=== PATIENT | female | born 1980 | race Caucasian/White ===

== ENCOUNTER 2021-02-25 16:23 | Emergency (ER) | payer OTHER, SELFPAY ==
[2021-02-25 16:33] VITALS: BP 138/76; PULSE 96; RESP 18; TEMP 37.4; O2SAT 99
--- NOTE | 2021-02-25 17:09 | ED.GENADULT ---
HPI - General Adult General Chief complaint: Upper Respiratory Infection Stated complaint: COVID Test Time Seen by Provider: 02/25/21 16:37 Source: patient and RN notes reviewed Mode of arrival: ambulatory Limitations: no limitations History of Present Illness HPI narrative: Patient presents today complaining of a frontal headache, chills, vomiting x1, body aches since this morning. She has not tried drinking since vomiting this morning because she is afraid to vomit again. Denies sore throat, congestion, rhinorrhea, abdominal pain, diarrhea. She does report some intermittent abdominal cramping. She did have COVID-19 in July but did not have symptoms at the time. States she just found out that her fourth coworker currently has COVID-19. Smokes 0.5 packs/day. History of tonsillectomy. MD complaint: Vomiting, headache Related Data Home Medications Medication Instructions Recorded Confirmed baclofen 10 mg PO Q8-10H PRN 02/25/21 02/25/21 bupropion HCl 150 mg PO BID 02/25/21 02/25/21 gabapentin 300 mg PO Q8-10H 02/25/21 02/25/21 meloxicam 7.5 mg PO PRN PRN 02/25/21 02/25/21 Allergies Allergy/AdvReac Type Severity Reaction Status Date / Time acetaminophen Allergy Mild Unknown Verified 02/25/21 16:39 Penicillins Allergy Mild Unknown Verified 02/25/21 16:39 HYDROCODONE BIT Allergy Mild Unknown Uncoded 02/25/21 16:39 OXYCODONE HCL Allergy Mild Unknown Uncoded 02/25/21 16:39 Review of Systems Review of Systems: Narrative: CONSTITUTIONAL: Denies fever, or sweats.+ Chills, body aches EYES: Denies visual changes, redness, or discharge. ENT: Denies rhinorrhea, congestion, sore throat, or otalgia. CARDIOVASCULAR: Denies chest pain, palpitations, or edema. RESPIRATORY: Denies cough or dyspnea. GASTROINTESTINAL: Denies abdominal pain, or diarrhea. + Nausea, vomiting, abdominal cramping GENITOURINARY: Denies dysuria or hematuria. SKIN: Denies rash, itching, or wounds. MUSCULOSKELETAL: Denies back pain, joint pain, or myalgia. NEUROLOGIC: Denies numbness, tingling, or weakness.+ Headache PSYCH: Denies depression or anxiety. PMFSH Past Medical History Medical History (Updated 02/25/21 @ 17:50 by Reny Luz, [facility], ) Asthma Surgical History Surgical History (Updated 02/25/21 @ 17:12 by Reny Luz, [facility], ) Hx of tonsillectomy Social History Social History (Updated 02/25/21 @ 17:13 by Reny Luz, [facility], ) Smoking packs per day: 0.25 Smoking cigarettes per day: 5.0 Smoking status: Current every day smoker Tobacco type: cigarettes Gender identity (if verbalized by the patient): Female Comments At time of signature, I have reviewed and agree with nursing past medical, surgical, social and family history unless otherwise noted. Please see nursing chart for further information. There is no relevant family history pertinent to the presenting complaint Exam Narrative: Exam Narrative: GENERAL: Ill-appearing, well-nourished, and in no acute distress. HEAD: Normocephalic, atraumatic. EYES: EOMI. No redness or drainage. Conjunctivae normal. ENT: Mucous membranes pink and moist. Nares clear. No rhinorrhea. Left TM normal. Right TM slightly injected. Throat normal. Uvula midline. NECK: Normal AROM. Supple. No lymphadenopathy. CHEST: No respiratory distress. Clear to auscultation. HEART: Regular rate and rhythm. No murmur appreciated. Normal peripheral pulses. ABDOMEN: Soft, nontender, nondistended, normal active bowel sounds. EXTREMITIES: Normal range of motion. No edema. SKIN: Warm, dry, no rash. Capillary refill normal. Normal skin turgor. NEURO: No focal deficits. Alert and oriented x3. Gait steady. PSYCH: Normal affect. No signs of depression or anxiety. Course Vital Signs Vital signs: Vital Signs Temperature 99.4 F 02/25/21 16:33 Pulse Rate 96 02/25/21 16:33 Respiratory Rate 18 02/25/21 16:33 Blood Pressure 138/76 02/25/21 16:33 Pulse Oximetry 99
[2021-02-25] MEDS: ONDANSETRON HCL ODT 4 MG TABLET 8 MG SUBLINGUAL (17:10)
[2021-02-27 18:42] LABS: SARS-CoV-2 RNA PCR Negative
== END 2021-02-25 17:56 | disposition home or self-care (01) ==
PROVIDERS: Emergency Provider Nurse Practitioner; PCP Family Medicine
DX: B34.9 Viral infection, unspecified (principal); Z20.822 Contact with and (suspected) exposure to COVID-19; J45.909 Unspecified asthma, uncomplicated
CPT/HCPCS: 87081; 87426; 87804; 87880; 99213; A9270; C9803; G0463; U0003; U0005

== ENCOUNTER 2021-04-08 10:11 | Emergency (ER) | payer OTHER, SELFPAY ==
--- NOTE | 2021-04-08 10:21 | ED.EXTPRO ---
HPI - Extremity Problem General Chief complaint: Extremity Problem,Nontraumatic Stated complaint: Bilateral hand pain History of Present Illness HPI Narrative: This is a 40 year old female that present with bilateral hand rash and eruption that are painful when she closes. Patient states that they started 4 days ago and they continue to get a little bigger. Patient denies any weeping or painfulness to touch but theyare annoying her. Patient has informed me that she was just informed that her KIAH test came back positive and she is awaiting a appointment with a catalyst supervisor. Patient denies having them anywhere elswe just on her hands. Related Data Home Medications Medication Instructions Recorded Confirmed baclofen 10 mg PO Q8-10H PRN 02/25/21 04/08/21 bupropion HCl 150 mg PO BID 02/25/21 04/08/21 meloxicam 7.5 mg PO PRN PRN 02/25/21 04/08/21 ergocalciferol (vitamin D2) 1,250 mcg PO WEEKLY 04/08/21 04/08/21 mecobalamin (vitamin B12) 10,000 mcg IM WEEKLY 04/08/21 04/08/21 metformin 500 mg PO DAILY 04/08/21 04/08/21 Allergies Allergy/AdvReac Type Severity Reaction Status Date / Time acetaminophen [From Percocet] Allergy Intermediate Swelling Verified 04/08/21 10:36 codeine Allergy Intermediate Swelling Verified 04/08/21 10:36 oxycodone [From Percocet] Allergy Intermediate Swelling Verified 04/08/21 10:36 Penicillins Allergy Mild Rash Verified 04/08/21 10:35 HYDROCODONE BIT Allergy Intermediate Swelling Uncoded 04/08/21 10:35 Review of Systems Review of Systems: Narrative: CONSTITUTIONAL: Denies fever, chills, or sweats. EYES: Denies visual changes, redness, or discharge. ENT: Denies rhinorrhea, congestion, sore throat, or otalgia. CARDIOVASCULAR:Denies chest pain, palpitations, or edema. RESPIRATORY: Denies cough or dyspnea. GASTROINTESTINAL: Denies abdominal pain, nausea, vomiting, or diarrhea. GENITOURINARY: Denies dysuria or hematuria. SKIN reports rash or itching. MUSCULOSKELETAL:Denies back pain, joint pain, or myalgia. NEUROLOGIC: Denies headache, numbness, or weakness. PSYCHIATRIC:Denies anxiety or depression PMFSH Past Medical History Medical History (Updated 04/08/21 @ 10:39 by Donenll Cash NP) Asthma Surgical History Surgical History (Updated 02/25/21 @ 17:12 by Reny Luz, [facility], ) Hx of tonsillectomy Social History Social History (Updated 02/25/21 @ 17:13 by Reny Luz, [facility], ) Smoking packs per day: 0.25 Smoking cigarettes per day: 5.0 Smoking status: Current every day smoker Tobacco type: cigarettes Gender identity (if verbalized by the patient): Female Comments At time as signature, I have reviewed and agree with nursing past medical, social, surgical and family history. Please see nursing chart for further information. There is no relevant family history pertinent to the presenting complaint. Exam Narrative: Exam Narrative: GENERAL:Well-appearing, well-nourished, and in no acute distress. HEAD:Normocephalic, atraumatic. EYES: PERRLA and EOMI. ENT: Nares clear, no rhinorrhea or epistaxis. Mucous membranes moist. NECK: Supple. CHEST: Clear to auscultation. No respiratory distress. HEART: Regular rate and rhythm. No murmur heard. Normal peripheral pulses. ABDOMEN: Soft, nontender, nondistended, normal active bowel sounds. EXTREMITIES: Normal range of motion. No edema. SKIN: Warm, dry, small pinpoint white eruption that are itchy and hard. NEURO: No focal deficits. Alert and oriented x3. Discharge Plan Discharge Clinical Impression: Rash and nonspecific skin eruption Patient Disposition: Home, Self-Care Condition: Stable Instructions: Antibiotic Form, Acute Rash (ED), Autoimmune Disease (ED) Additional Instructions: Use skin creams/lotion, such as those containing calamine or pramoxine to reduce itchiness Avoid scratching when possible to prevent worsening of the condition and disruption of the skin that could lead to bacterial infection T
[2021-04-08 10:29] VITALS: BP 128/85; PULSE 87; RESP 16; TEMP 36.5; O2SAT 100
[2021-04-08 10:34] VITALS: BP 128/85; PULSE 87; RESP 16; TEMP 36.5; O2SAT 100
== END 2021-04-08 10:48 | disposition home or self-care (01) ==
PROVIDERS: Emergency Provider Nurse Practitioner Family; PCP Family Medicine
DX: R21 Rash and other nonspecific skin eruption (principal); F17.210 Nicotine dependence, cigarettes, uncomplicated; J45.909 Unspecified asthma, uncomplicated
CPT/HCPCS: 99213; G0463

== ENCOUNTER → 2021-05-26 00:46 | Outpatient (CLI) | payer OTHER, SELFPAY ==
[2021-05-26 22:45] LABS: SARS-CoV-2 RNA PCR Negative
== END ==
PROVIDERS: PCP Family Medicine; Visit Provider Obstetrics & Gynecology
DX: Z01.812 Encounter for preprocedural laboratory examination (principal); Z20.822 Contact with and (suspected) exposure to COVID-19
CPT/HCPCS: C9803; U0003; U0005

== ENCOUNTER 2021-05-30 01:53 | Day surgery (SDC) | payer OTHER, SELFPAY ==
[2021-05-28 13:07] VITALS: BMI 34.0
--- NOTE | 2021-05-29 09:09 | P.PNAN_ITS ---
Anes - Initial Pre Proc Eval Procedure: Operation Date: 05/30/21 07:30 Proposed Procedures p Diagnostic Laparoscopy, Hysteroscopy with Endometrial Ablation Ilene, with Laparoscopic Bilateral Salpingectomy - Miladis Shin MD Date/Time: 05/29/21 09:09 Surgeon: Miladis Shin MD Pre Op Diagnosis: menorrhagia, desires sterilization Patient Data Age: 40 Gender: F Height: 1.55 m Weight: 81.8 kg Allergies Allergy/AdvReac Type Severity Reaction Status Date / Time Penicillins Allergy Severe Hives Verified 05/30/21 06:16 codeine Allergy Intermediate Swelling Verified 05/30/21 06:16 oxycodone [From Percocet] AdvReac Mild Vomiting Verified 05/30/21 06:16 HYDROCODONE BIT AdvReac Intermediate Vomiting Uncoded 05/30/21 06:16 Home Medications Medication Instructions Recorded Confirmed Type bupropion HCl 150 mg PO BID 02/25/21 05/30/21 History ergocalciferol (vitamin D2) 1,250 mcg PO WEEKLY 04/08/21 05/30/21 History albuterol sulfate 2 inh INHALATION TID PRN 05/28/21 05/28/21 History Patient hx anesthesia problems: none Family hx anesthesia problems: none [facility] Past Medical History Medical History (Updated 05/29/21 @ 09:10 by Tong Rodas DO) Asthma Pre-diabetes Surgical History Surgical History (Updated 05/29/21 @ 09:10 by Tong Rodas DO) History of History of cholecystectomy Hx of tonsillectomy Social History Social History (Updated 02/25/21 @ 17:13 by Reny Luz, [facility], ) Smoking packs per day: 0.25 Smoking cigarettes per day: 5.0 Years smoked: 26 Smoking pack-years: 6.50 Smoking status: Current every day smoker Tobacco type: cigarettes Gender identity (if verbalized by the patient): Female Spiritual care concerns: No Anes - Eval Final PreProcedure Day of Procedure 05/29/21 09:09 Patient weight: obese Heart: regular rate and rhythm Lungs: clear to auscultation and normal air movement Airway: Mallampati scale class II Neurological: alert and oriented Last oral intake: >/= 8 hours ASA classification: III Emergent: no Anesthetic plan: proceed Anesthesia type and monitoring: general ETT and standard monitoring Informed Consent: The patient's anesthetic plan and its attendant risks and b enefits were discussed with the patient/family/POA. Questions were solicited and answers provided to the satisfaction of the patient/family/POA.
[2021-05-30] VITALS (12 sets, daily range): BP systolic 84–115; BP diastolic 45–77; PULSE 71–98; RESP 12–20; TEMP 36.1–36.7; O2SAT 94–100
[2021-05-30] MEDS: ACETAMINOPHEN 500 MG TABLET 1000 MG PO (06:35)
[2021-05-30] MEDS: LACTATED RINGERS 1,000 ML 30 ML IV CONT ×3 (06:40→11:42)
[2021-05-30] MEDS: KETOROLAC 15 MG/ML VIAL (*BKC) IV PUSH (06:41)
--- NOTE | 2021-05-30 07:13 | WPDHPUPDATE1 ---
History and Physical Update Update Date/Time: 05/30/21 07:13 History and Physical has been reviewed, including an updated exam of the patient. There are NO changes in the patient's condition. Risks, benefits, and alternatives have been discussed and questions answered. Patient agrees to proceed with procedure.
--- NOTE | 2021-05-30 10:17 | W.PM.PROC2 ---
Procedure Note - Detailed Date of Procedure 05/30/21 Pre-op Diagnosis menorrhagia, desires sterilization, pelvic pain Post-op Diagnosis same (With endometriosis, pelvic adhesions) Procedure Performed Diagnostic laparoscopy, bilateral salpingectomy, adhesiolysis-1 hour, resection and fulguration of endometriosis with radical resection. Surgeon Miladis Shin MD Anesthesia general Indications Pelvic pain, unwanted fertility, menorrhagia Findings Pelvic adhesions involving the rectum, left ovary and left fallopian tube and left lateral pelvic sidewall. Endometriosis throughout the posterior cul-de-sac. Normal-appearing tubes and ovaries. Normal-appearing uterus that was mildly enlarged - 9cm. Normal vulva, vagina, and cervix. Normal-appearing into atrial cavity. Description of Procedure The patient was taken to the operating room. She was prepped and draped in the dorsal lithotomy position after induction general anesthesia. A 5 mm incision was made with a scalpel on the abdominal skin in the left upper quadrant of the abdomen. A 5 mm trocar was inserted into the intra-abdominal cavity under direct visualization the scope. In the same fashion a 5 mm left lower quadrant trocar was inserted and a 5 mm infraumbilical trocar was inserted. 1 hour adhesiolysis was performed using sharp and blunt dissection along the lateral left pelvic sidewall. The left ovary and fallopian tube were from the left lateral pelvic sidewall. The ureter was identified ureteral lysis was performed down to the level of the uterine artery on the left. The rectum was from the left lateral pelvic sidewall and the ovary. This was all done with careful sharp and blunt dissection along with cautery. The ovaries were suspended bilaterally using a transabdominally placed suture. This was performed with a Julio Cesar-Aida needle. After transillumination the abdomen the needle was placed across the abdominal wall in the bilateral lower quadrants holding the 0 Vicryl suture. The skin was placed through the ovary the sutures gracilis side the ovary and drawn back through the abdomen and held in place with a hemostat bilaterally. Radical dissection of the posterior cul-de-sac peritoneum was then performed. This required adhesiolysis as well. Ureters were exposed on both sides. Ureterolysis was performed bilaterally. Peritoneum was carefully dissected off the pelvic sidewalls from the pelvic brim down the level of the uterine arteries and laterally from the suspensory in the ovary medially to the rectum. When this was completed and was found to be hemostatic. Interceed was placed over both sides of the pelvis. Prior to placement of the Interceed The pelvis was irrigated. Then, The pneumoperitoneum was reduced. The trocars were removed. Skin was closed with subcuticular 4 Monocryl. The patient's incisions were covered with Dermabond. Speculum was placed in the vagina. Cervix grasped with a tenaculum. The cervix dilated to about 8 mm. Hysteroscope was inserted in the normal intrauterine cavity was observed. Curettage was then performed with a medium curette. All surfaces were curettaged with a sharp curette. The cervix was then measured using the hysteroscope. The uterus was measured using a sound. The measurements were entered into the Ilene handpiece. The array was then placed the intrauterine cavity. The array was expanded. The balloon cuff was inflated. The safety checks completed in the energy cycle was initiated. Without was completed the device was withdrawn after was collapsed and the balloon was deflated. The hysteroscope was then inserted and a well desiccated endometrium was observed. The procedure was then terminated. Speculum and tenaculum removed. Patient tolerated the procedure well. Was taken cover stable condition. Sponge lap needle counts were correct x2. Estimated Blood Loss 100 Drains No Packing No Pathology yes Complicati
[2021-05-30] MEDS: ONDANSETRON INJ 4 MG/2 ML VIAL IV PUSH (11:14)
[2021-05-30] MEDS: SCOPOLAMINE 1.5 MG PATCH TRANSDERM (11:47)
[2021-05-30] MEDS: diphenhydrAMINE HCl INJ 50 MG/ML VIAL 12.5 MG IV PUSH (11:47)
== END 2021-05-30 13:45 | disposition home or self-care (01) ==
PROVIDERS: PCP Family Medicine; Visit Provider Obstetrics & Gynecology
PROC: 0UDB8ZZ Extraction of Endometrium, Via Natural or Artificial Opening Endoscopic (ICD-10-PCS; CPT 58558; principal; 2021-05-30 07:30)
DX: N92.0 Excessive and frequent menstruation with regular cycle (principal); Z30.2 Encounter for sterilization; R10.2 Pelvic and perineal pain; N73.6 Female pelvic peritoneal adhesions (postinfective); N80.3 Endometriosis of pelvic peritoneum; N83.8 Other noninflammatory disorders of ovary, fallopian tube and broad ligament; J45.909 Unspecified asthma, uncomplicated; R73.03 Prediabetes; Z79.51 Long term (current) use of inhaled steroids; F17.210 Nicotine dependence, cigarettes, uncomplicated; E66.01 Morbid (severe) obesity due to excess calories; Z68.41 Body mass index [BMI] 40.0-44.9, adult
CPT/HCPCS: 58662; 58661; 88302; 88305; A9270; J1100; J1170; J1200; J1885; J2250; J2370; J2405; J2704; J2710; J3010; J7030; J7120

== ENCOUNTER 2021-08-04 17:07 | Emergency (ER) | payer OTHER, SELFPAY ==
[2021-08-04 17:17] VITALS: BP 147/95; PULSE 82; RESP 17; O2SAT 100
--- NOTE | 2021-08-04 18:09 | ED.SKABFB ---
HPI - Skin/Abscess/Foreign Bdy General Chief complaint: Skin/Abscess/Foreign Body Stated complaint: wound Time Seen by Provider: 08/04/21 17:54 Source: patient and RN notes reviewed Mode of arrival: ambulatory Limitations: no limitations History of Present Illness HPI narrative: This is a 40 year old female who presents for evaluation of right hand wound. Patient developed wound on that seemed like small pimple. It gradually become swollen and red . Yesterday she was seen at an urgent care and she had wound lanced. She was prescribed bactrim but she has not started the antibiotics. She read that bactrim could potentiallly cause flare up of lupus, and she was recently diagnosed. She reports swelling to right hand around wound. Related Data Home Medications Medication Instructions Recorded Confirmed bupropion HCl 150 mg PO BID 02/25/21 05/30/21 ergocalciferol (vitamin D2) 1,250 mcg PO WEEKLY 04/08/21 05/30/21 albuterol sulfate 2 inh INHALATION TID PRN 05/28/21 05/28/21 Allergies Allergy/AdvReac Type Severity Reaction Status Date / Time Penicillins Allergy Severe Hives Verified 08/04/21 17:20 codeine Allergy Intermediate Swelling Verified 08/04/21 17:20 hydrocodone AdvReac Intermediate Vomiting Verified 08/04/21 18:23 oxycodone [From Percocet] AdvReac Mild Vomiting Verified 08/04/21 17:20 Review of Systems Review of Systems: All systems reviewed & are unremarkable except as noted in HPI and below PMFSH Past Medical History Medical History (Updated 08/05/21 @ 00:00 by Chris Davenport) Asthma Pre-diabetes Surgical History Surgical History (Updated 05/29/21 @ 09:10 by Tong Rodas, DO) History of History of cholecystectomy Hx of tonsillectomy Social History Social History (Updated 02/25/21 @ 17:13 by Reny Luz, [facility], ) Smoking packs per day: 0.25 Smoking cigarettes per day: 5.0 Years smoked: 26 Smoking pack-years: 6.50 Smoking status: Current every day smoker Tobacco type: cigarettes Gender identity (if verbalized by the patient): Female Spiritual care concerns: No Exam Const: General: alert Orientation/consciousness: patient oriented x3 Eyes: EOM: EOMs intact bilaterally Resp: Effort & Inspection: normal respiratory effort Neuro: General: patient oriented x3 and moves all extremities Extrem: General: full ROM Other: right hand with small wound red, no drainage, no surrgound induration, TTP around wound, no signigicant swelling Psych: Mental Status: mental status grossly normal Affect: normal affect Course Reevaluation(s) Reevaluation #1: Patient given dose of antibiotics in ER . Will discharge with doxycycline. Date: 08/04/21 Time: 18:17 Vital Signs Vital signs: Vital Signs Pulse Rate 82 08/04/21 17:17 Respiratory Rate 17 08/04/21 17:17 Blood Pressure 147/95 H 08/04/21 17:17 Pulse Oximetry 100 08/04/21 17:17 Pulse Rate 82 08/04/21 17:17 Respiratory Rate 17 08/04/21 17:17 Blood Pressure 147/95 H 08/04/21 17:17 Pulse Oximetry 100 08/04/21 17:17 Discharge Plan Discharge Clinical Impression: Open wound, hand Patient Disposition: Home, Self-Care Condition: Stable Instructions: Antibiotic Form, Abscess Incision and Drainage (DC) Additional Instructions: Keep your wound clean and dry. Take ibuprofen for pain and inflammation. This will help with swelling. Take antibiotics as well. Follow up with your primary care physician as needed. Prescriptions: New doxycycline monohydrate 100 mg tablet 100 mg PO BID Qty: 14 RF: 0 ibuprofen 800 mg tablet 800 mg PO Q6H PRN (Reason: pain) Qty: 14 RF: 0 No Action ergocalciferol (vitamin D2) 1,250 mcg (50,000 unit) capsule 1,250 mcg PO WEEKLY RF: 0 bupropion HCl 150 mg tablet sustained-release 12 hr 150 mg PO BID RF: 0 albuterol sulfate 90 mcg/actuation HFA aerosol inhaler 2 inh INHALATION TID PRN (Reason: Dys
[2021-08-04] MEDS: IBUPROFEN 400 MG TABLET 800 MG PO (18:16)
[2021-08-04] MEDS: DOXYCYCLINE HYCLATE 100 MG TABLET PO (18:16)
== END 2021-08-04 18:45 | disposition home or self-care (01) ==
PROVIDERS: Emergency Provider General Practice; PCP Family Medicine
DX: L98.8 Other specified disorders of the skin and subcutaneous tissue (principal); J45.909 Unspecified asthma, uncomplicated; R73.03 Prediabetes; F17.210 Nicotine dependence, cigarettes, uncomplicated
CPT/HCPCS: 99283; A9270

== ENCOUNTER 2021-10-23 11:25 | Emergency (ER) | payer OTHER, SELFPAY ==
--- NOTE | ~2021-10-23 | US_ITS ---
EXAMINATION:US venous doppler LE LT INDICATION:Evaluate for deep venous thrombosis. TECHNIQUE: Multiple grayscale, color flow and Doppler images of the left lower extremity deep venous systems were obtained and reviewed. COMPARISON:No prior studies for comparison. FINDINGS: The common femoral, superficial femoral and popliteal veins demonstrate normal respiratory variation, augmentation and compressibility. Color flow is also seen within the posterior tibial, pe roneal, greater saphenous and profunda veins. IMPRESSION: 1: No lower extremity deep venous thrombosis. Reviewed, dictated and finalized at location B. [employer]
[2021-10-23 11:35] VITALS: BP 119/70; PULSE 88; RESP 18; TEMP 36.5; O2SAT 100
[2021-10-23 14:13] VITALS: BP 127/63; PULSE 76; RESP 18; O2SAT 99
--- NOTE | 2021-10-23 17:06 | ED.GENADULT ---
HPI - General Adult General Chief complaint: Extremity Problem,Nontraumatic Stated complaint: left calf pain Time Seen by Provider: 10/23/21 11:51 Source: patient Mode of arrival: ambulatory Limitations: no limitations History of Present Illness HPI narrative: Patient is a 40-year-old female with chief complaint of pain to the posterior aspect of her left calf over the past few days. Patient reports that she had an ACL repair on September. Patient reports that she has been working with physical therapy and when she discussed with him the pain in her calf today they instructed her to come to the emergency department to rule out a DVT. I have been working on the leg to stretch and massage the muscles. Patient reports taking 325 mg of aspirin. Patient reports having ACL repair and SLU. She denies chest pain or shortness of breath. Related Data Home Medications Medication Instructions Recorded Confirmed bupropion HCl 150 mg PO BID 02/25/21 05/30/21 ergocalciferol (vitamin D2) 1,250 mcg PO WEEKLY 04/08/21 05/30/21 albuterol sulfate 2 inh INHALATION TID PRN 05/28/21 05/28/21 Allergies Allergy/AdvReac Type Severity Reaction Status Date / Time Penicillins Allergy Severe Hives Verified 08/04/21 17:20 codeine Allergy Intermediate Swelling Verified 08/04/21 17:20 hydrocodone AdvReac Intermediate Vomiting Verified 08/04/21 18:23 oxycodone [From Percocet] AdvReac Mild Vomiting Verified 08/04/21 17:20 Review of Systems Review of Systems: CONSTITUTIONAL: Denies fever, chills, or sweats. EYES: Denies visual changes, redness, or discharge. ENT: Denies rhinorrhea, congestion, sore throat, or otalgia. CARDIOVASCULAR: Denies chest pain, palpitations, or edema. RESPIRATORY: Denies cough or dyspnea. GASTROINTESTINAL: Denies abdominal pain, nausea, vomiting, or diarrhea. GENITOURINARY: Denies dysuria or hematuria. SKIN: Denies rash or itching. MUSCULOSKELETAL: Reports left calf pain denies back pain, joint pain, or myalgia. NEUROLOGIC: Denies headache, numbness, dizziness, or weakness. PSYCHIATRIC: Denies anxiety or depression. [facility] Past Medical History Medical History (Updated 10/23/21 @ 13:58 by Eugenio Sanchez PA-C) Asthma Pre-diabetes Surgical History Surgical History (Updated 05/29/21 @ 09:10 by Tong Rodas, DO) History of History of cholecystectomy Hx of tonsillectomy Social History Social History (Updated 02/25/21 @ 17:13 by Reny Luz, [facility], ) Smoking packs per day: 0.25 Smoking cigarettes per day: 5.0 Years smoked: 26 Smoking pack-years: 6.50 Smoking status: Current every day smoker Tobacco type: cigarettes Gender identity (if verbalized by the patient): Female Spiritual care concerns: No Exam Narrative: GENERAL: Well-appearing, well-nourished, and in no acute distress. HEAD: Normocephalic, atraumatic. EYES: PERRLA and EOMI. CHEST: Clear to auscultation. No respiratory distress. No wheezes rales or rhonchi HEART: Regular rate and rhythm. EXTREMITIES:No erythema noted to posterior calf. Pulse intact TO DP. SKIN: Warm, dry, no rash. NEURO: No focal deficits. Alert and oriented x3. PSYCH: Normal mood and affect. Course Vital Signs Vital signs: Vital Signs Temperature 97.7 F 10/23/21 11:35 Pulse Rate 88 10/23/21 11:35 Respiratory Rate 18 10/23/21 11:35 Blood Pressure 119/70 10/23/21 11:35 Pulse Oximetry 100 10/23/21 11:35 Temperature 97.7 F 10/23/21 11:35 Pulse Rate 76 10/23/21 14:13 Respiratory Rate 18 10/23/21 14:13 Blood Pressure 127/63 10/23/21 14:13 Pulse Oximetry 99 10/23/21 14:13 Medical Decision Making MDM Narrative Medical decision making narrative: Doppler negative for DVT. Patient instructed to follow-up with her carburetor specialist further evaluation and management of her symptoms. No signs of cellulitis or infection noted. No drainage from wound sites. Patient instructed to return to the emerge
== END 2021-10-23 14:15 | disposition home or self-care (01) ==
PROVIDERS: Emergency Provider Emergency Medicine; PCP Family Medicine
DX: G89.18 Other acute postprocedural pain (principal); M79.662 Pain in left lower leg; J45.909 Unspecified asthma, uncomplicated; R73.03 Prediabetes; F17.210 Nicotine dependence, cigarettes, uncomplicated
CPT/HCPCS: 93971; 99284

== ENCOUNTER 2023-01-29 09:07 | Outpatient (CLI) | payer OTHER, SELFPAY ==
--- NOTE | ~2023-01-29 | MM_ITS ---
EXAMINATION: MM screening zamzam BI w romina HISTORY: Screening mammogram TECHNIQUE: Craniocaudal and mediolateral oblique 3-D tomosynthesis images were obtained and synthetic 2-D images were generated. CAD analysis was submitted and interpreted. COMPARISON: None, baseline BREAST PARENCHYMAL COMPOSITION: There are scattered areas of fibroglandular density. FINDINGS: No suspicious mass, calcification, or architectural distortion are identified in either payton ast to suggest malignancy. IMPRESSION: 1. No mammographic evidence of malignancy. 2. Recommend routine screening mammography in one year. BI-RADS Category 1: Negative Reviewed, dictated and finalized at location A.
== END 2023-01-29 09:08 | disposition home or self-care (01) ==
LOC: ANHIMG 09:08
PROVIDERS: PCP Family Medicine; Visit Provider Nurse Practitioner Obstetrics & Gynecology
DX: Z12.31 Encounter for screening mammogram for malignant neoplasm of breast (principal)
CPT/HCPCS: 77063; 77067

== ENCOUNTER 2023-07-24 03:40 | Emergency (ER) | payer OTHER, SELFPAY ==
--- NOTE | ~2023-07-24 | CT_ITS ---
EXAMINATION: CT abdomen pelvis w con DATE: 07/24/2023 05:25 INDICATION: Left flank pain. TECHNIQUE: Computed tomography (CT) of the abdomen and pelvis was performed with 100 mL Omnipaque 350 intravenous contrast. Automated exposure control and iterative reconstruction technique were employe d. The dose-length product was 852.73 mGy-cm. COMPARISON: None. FINDINGS: The visualized portions of the lung bases demonstrate minimal atelectasis on the left. No p leural effusion. The heart size is normal. No pericardial effusion. The liver is normal. There are ch anges of cholecystectomy. The spleen, pancreas, adrenal glands, and kidneys are normal. There is a 4. 7 cm cyst in left ovary. There are no dilated loops of bowel. The appendix is normal. There is physio logic fluid in the pelvis. There are no pathologically enlarged lymph nodes. There is mild thoracic a nd lumbar spondylosis. IMPRESSION: 1. 4.7 cm cyst in left ovary, likely a follicular cyst. Reviewed, dictated and finalized at location E.
[2023-07-24 03:51] VITALS: BP 131/94; PULSE 77; RESP 15; TEMP 36.7; O2SAT 98
[2023-07-24 04:05] LABS: Basophils Absolute Auto 0.1 K/mm3 (0.0-0.1); Basophils Percent Auto 0.7 % (0.2-1.2); Eosinophils Absolute Auto 0.4 K/mm3 (0-0.3); Eosinophils Percent Auto 3.7 % (0-4.4); Hematocrit 42.3 % (37.0-47.0); Hemoglobin 14.4 g/dL (12.0-15.0); Immature Granulocyte Absolute 0.04 K/mm3 (0.00-0.031); Immature Granulocyte Percent A 0.4 % (0-0.5); Lymphocytes Absolute Auto 2.76 K/mm3 (0.9-3.2); Mean Corpuscular Hemoglobin 31.6 pg (26-34); Mean Corpuscular Volume 92.8 fl (80-100); Mean Platelet Volume 11.1 fl (7.4-10.4); Monocytes Absolute Auto 0.8 K/mm3 (0.1-0.6); Monocytes Percent Auto 7.5 % (2.6-8.5); Neutrophils Absolute Auto 6.2 K/mm3 (1.3-6.7); Neutrophils Percent Auto 60.7 % (45.5-73.1); Platelet Count Result 279 k/mm3 (150-375); Red Blood Count 4.56 M/mm3 (4.2-5.4); Red Cell Distribution Width 12.5 % (11.5-14.5); White Blood Count 10.2 K/mm3 (4.5-10.0)
[2023-07-24 04:30] LABS: Alanine Aminotransferase 23 U/L (6-35); Albumin Level 3.8 g/dL (3.5-5.1); Alkaline Phosphatase 62 U/L (38-126); Anion Gap 6 mmol/L (8-16); Aspartate Amino Transferase 26 U/L (14-36); Bilirubin,Total 0.3 mg/dL (0.2-1.3); Blood Urea Nitrogen 13 mg/dL (7-17); Calcium 8.4 mg/dL (8.4-10.2); Carbon Dioxide 23 mmol/L (22-30); Chloride 105 mmol/L (98-107); Estimated CRCL calculation 125 ml/min; Estimated Glomerular Filt Rate > 60; Glucose 117 mg/dL (65-110); Potassium 3.6 mmol/L (3.4-5.0); Sodium 134 mmol/L (137-145)
--- NOTE | 2023-07-24 04:50 | ED.ABDPAIN ---
HPI - Abdominal Pain General Chief Complaint: Abdominal Pain Stated Complaint: lower abd pain Time Seen by Provider: 07/24/23 04:20 Source: patient Limitations: no limitations History of Present Illness HPI narrative: Patient is a 42-year-old female present to the emergency department complaining of left lower back and left groin discomfort that started gradually around approximately 10 AM yesterday morning, describes the pain as sharp, states that it is waxing and waning and has not gone away, patient denies any history of this pain in the past. Patient denies the pain getting rapidly worse prompting her to seek evaluation rather has not gotten better and seems like it is just progressively been worsening throughout the past approximately 30 hours. Patient has not noticed anything making her pain better nor worse. Patient thought that she was constipated so she tried some laxatives without any relief patient notes her last bowel movement was Friday and unremarkable. Patient notes her last menstrual period was in 2020. Patient denies vomiting, diarrhea, recent injuries, recent illness, fever, dysuria, hematuria, urinary frequency, urinary urgency, vaginal bleeding, vaginal discharge, rash, numbness, weakness, cough, chest pain, shortness of breath, history of kidney stones. Related Data Home Medications Medication Instructions Recorded Confirmed bupropion HCl 150 mg tablet,12 hr 150 mg PO BID 02/25/21 07/24/23 sustained-release albuterol sulfate 90 mcg/actuation 2 inh inhalation TID PRN Dyspnea 05/28/21 07/24/23 aerosol inhaler hydroxychloroquine 200 mg tablet 400 mg PO QAM 07/24/23 07/24/23 Allergies Allergy/AdvReac Type Severity Reaction Status Date / Time Penicillins Allergy Severe Hives Verified 07/25/23 10:49 codeine Allergy Intermediate Swelling Verified 07/25/23 10:49 hydrocodone AdvReac Mild Vomiting Verified 07/25/23 10:49 hydromorphone [From Dilaudid] AdvReac Mild Itching Verified 07/25/23 10:49 oxycodone [From Percocet] AdvReac Mild Vomiting Verified 07/25/23 10:49 Review of Systems Review of Systems: A 10 system review of systems was completed on the patient and is negative except for what is stated in the HPI. Nursing and ancillary documentation was reviewed. [facility] Past Medical History Medical History (Updated 10/27/23 @ 11:21 by Tong Rodas DO) KIAH positive Asthma Endometriosis Pre-diabetes Surgical History Surgical History (Updated 05/29/21 @ 09:10 by Tong Rodas DO) History of History of cholecystectomy Hx of tonsillectomy Family History Family History (Updated 07/24/23 @ 19:00 by Krystyna Franz RN) Mother Breast cancer Ovarian cancer Lupus Social History Social History (Updated 02/25/21 @ 17:13 by Reny Luz, [facility], ) Smoking packs per day: 0.25 Smoking cigarettes per day: 5.0 Years smoked: 26 Smoking pack-years: 6.50 Smoking status: Current every day smoker Tobacco type: cigarettes Alcohol intake: never Substance use: never Lack of Transportation: No Lack of Food: Never True Current Housing: I Have Housing Concerned About Future Housing: No Difficulty Paying Gas/Electric Bills: No Difficulty Paying for Meds: No Currently Unemployed: No Education: High School Diploma/GED Difficulty w/ Childcare or Family Care: No Gender identity (if verbalized by the patient): Female Spiritual care concerns: No Comments At time of signature, I have reviewed and agree with nursing past medical, surgical, social and family history unless otherwise noted. Please see the nursing chart for further information. There is no relevant family history pertinent to the presenting complaint. Exam Narrative: CONST: Mild acute distress. Well nourished. HENMT: Head is normocephalic and atraumatic. Moist mucous membranes. No posterior oropharynx erythema. EYES: No conjunctival icterus, injection, or pallor. PE
[2023-07-24 04:58] LABS: Lipase 74 U/L (23-300)
[2023-07-24] MEDS: KETOROLAC 15 MG/ML VIAL (*BKC) IV PUSH (05:04)
[2023-07-24 05:13] LABS: Appearance Urine Clear (Clear); Bilirubin Urine Negative (Negative); Blood Urine Negative (Negative); Color Urine Yellow (Yellow); Glucose Urine UA Negative (Negative); Ketones Urine Negative (Negative); Leukocyte Esterase Ur Negative LEU/UL (Negative); Nitrate Urine Negative (Negative); Protein Urine Negative (Negative); Specific Grav Ur 1.012 (1.001-1.035); Urobilinogen Urine 0.2 mg/dL (<2.0); pH Urine 5.5 (5.0-9.0)
[2023-07-24 05:35] LABS: Add Urine Microscopic? NO
[2023-07-24 06:14] VITALS: BP 122/70; PULSE 62; RESP 15; O2SAT 99
[2023-07-24 06:42] VITALS: BP 121/74; PULSE 72; RESP 15; O2SAT 100
== END 2023-07-24 06:44 | disposition home or self-care (01) ==
PROVIDERS: Emergency Provider Student in an Organized Health Care Education/Training Program; PCP Family Medicine
DX: N83.202 Unspecified ovarian cyst, left side (principal); J45.909 Unspecified asthma, uncomplicated; R73.03 Prediabetes; N80.9 Endometriosis, unspecified; F17.210 Nicotine dependence, cigarettes, uncomplicated; Z90.49 Acquired absence of other specified parts of digestive tract
CPT/HCPCS: 36415; 74177; 80053; 81003; 81025; 83690; 85025; 96374; 99284; J1885; Q9967

== ENCOUNTER 2023-07-24 13:50 | Observation (INO) | payer OTHER, SELFPAY ==
[2023-07-24 13:54] VITALS: BP 128/107; PULSE 72; RESP 16; TEMP 36.5; O2SAT 97
--- NOTE | 2023-07-24 16:50 | ED.ABDPAIN ---
HPI - Abdominal Pain General Chief Complaint: Abdominal Pain Stated Complaint: known ovarian cyst Time Seen by Provider: 07/24/23 16:34 History of Present Illness HPI narrative: 42-year-old female presenting to the emergency department for evaluation of lower abdominal pain. Patient was recently diagnosed with an ovarian cyst and patient had follow-up with [facility]. Patient states that she called her [facility] and she was referred to the emergency department for evaluation. Upon arrival to the emergency department patient does appear to have some abdominal discomfort. Patient denies any other pain or injury. Patient is not on any blood thinners. Related Data Home Medications Medication Instructions Recorded Confirmed bupropion HCl 150 mg tablet,12 hr 150 mg PO BID 02/25/21 07/24/23 sustained-release albuterol sulfate 90 mcg/actuation 2 inh inhalation TID PRN Dyspnea 05/28/21 07/24/23 aerosol inhaler hydroxychloroquine 200 mg tablet 400 mg PO QAM 07/24/23 07/24/23 Allergies Allergy/AdvReac Type Severity Reaction Status Date / Time Penicillins Allergy Severe Hives Verified 08/04/21 17:20 codeine Allergy Intermediate Swelling Verified 07/24/23 20:46 hydrocodone AdvReac Mild Vomiting Verified 07/24/23 20:46 oxycodone [From Percocet] AdvReac Mild Vomiting Verified 07/24/23 20:46 Review of Systems Review of Systems: All systems reviewed & are unremarkable except as noted in HPI and below PMFSH Past Medical History Medical History (Updated 07/24/23 @ 21:16 by Khoi Galvin MD) Asthma Pre-diabetes Surgical History Surgical History (Updated 05/29/21 @ 09:10 by Tong Rodas DO) History of History of cholecystectomy Hx of tonsillectomy Family History Family History (Updated 07/24/23 @ 19:00 by Krystyna Franz RN) Mother Breast cancer Ovarian cancer Lupus Social History Social History (Updated 02/25/21 @ 17:13 by Reny Luz, [facility], ) Smoking packs per day: 0.25 Smoking cigarettes per day: 5.0 Years smoked: 26 Smoking pack-years: 6.50 Smoking status: Current every day smoker Tobacco type: cigarettes Alcohol intake: never Substance use: never Lack of Transportation: No Lack of Food: Never True Current Housing: I Have Housing Concerned About Future Housing: No Difficulty Paying Gas/Electric Bills: No Difficulty Paying for Meds: No Currently Unemployed: No Education: High School Diploma/GED Difficulty w/ Childcare or Family Care: No Gender identity (if verbalized by the patient): Female Spiritual care concerns: No Exam Narrative: APPEARANCE: Distress secondary to abdominal pain HEAD: normocephalic, atraumatic. EYES: PERRLA/EOMI, conjunctivae clear. NOSE: Normal no drainage EARS:TMS clear with good light reflex. THROAT: Pharynx clear, no exudate. NECK: Supple. No adenopathy, no masses. RESPIRATORY: Airway patent, respirations nonlabored. Clear to auscultation bilaterally, no rales, rhonchi, wheezing. CARDIOVASCULAR: Regular rate and rhythm without murmurs rubs or gallops. ABDOMINAL: Lower abdominal tenderness to palpation MUSCULOSKELETAL: Moves all extremities. Strength/ROM intact, No edema, No calf tenderness. NEURO: Alert. Cranial nerves II through XII intact. Grossly intact SKIN: Warm, dry. Normal Color PSYCHIATRIC: Normal affect/mood. Course Course Emergency Course: 42-year-old female present emergency department for evaluation of abdominal pain secondary to recent identified cyst. Patient was provided IV medications for pain control and for nausea control. Patient was also provided IV fluids. I discussed case with Dr. Shin and he states that he will admit the patient to his service and the anticipated plan is surgery in the morning. Patient and family were updated on the discussion with Dr. Shin anticipated surgery for the morning. All questions concerns addressed and patient was well-appearing after pain medicati
[2023-07-24 16:52] VITALS: BP 116/77; PULSE 69; RESP 17; O2SAT 99
[2023-07-24 16:56] LABS: Basophils Absolute Auto 0.1 K/mm3 (0.0-0.1); Basophils Percent Auto 0.7 % (0.2-1.2); Eosinophils Absolute Auto 0.4 K/mm3 (0-0.3); Eosinophils Percent Auto 4.7 % (0-4.4); Hematocrit 43.4 % (37.0-47.0); Hemoglobin 14.6 g/dL (12.0-15.0); Immature Granulocyte Absolute 0.02 K/mm3 (0.00-0.031); Immature Granulocyte Percent A 0.2 % (0-0.5); Lymphocytes Absolute Auto 2.97 K/mm3 (0.9-3.2); Lymphocytes Percent Auto 36.1 % (18.3-44.2); Mean Corpuscular HGB Conc 33.6 g/dl (32-36); Mean Corpuscular Hemoglobin 31.7 pg (26-34); Mean Corpuscular Volume 94.1 fl (80-100); Mean Platelet Volume 10.9 fl (7.4-10.4); Monocytes Absolute Auto 0.6 K/mm3 (0.1-0.6); Monocytes Percent Auto 7.5 % (2.6-8.5); Neutrophils Absolute Auto 4.2 K/mm3 (1.3-6.7); Neutrophils Percent Auto 50.8 % (45.5-73.1); Platelet Count Result 273 k/mm3 (150-375); Red Blood Count 4.61 M/mm3 (4.2-5.4); Red Cell Distribution Width 12.7 % (11.5-14.5); White Blood Count 8.2 K/mm3 (4.5-10.0)
[2023-07-24] MEDS: ONDANSETRON INJ 4 MG/2 ML VIAL IV PUSH ×2 (17:07→19:45)
[2023-07-24] MEDS: SODIUM CHLORIDE 0.9% IV 1,000 ML 999 ML IV CONT (17:07)
[2023-07-24] MEDS: fentaNYL CITRATE INJ (*CRX) 100 MCG/2 ML VIAL 50 MCG IV PUSH ×2 (17:08→18:52)
[2023-07-24 17:09] LABS: Alanine Aminotransferase 30 U/L (6-35); Albumin Level 3.9 g/dL (3.5-5.1); Alkaline Phosphatase 64 U/L (38-126); Anion Gap 3 mmol/L (8-16); Aspartate Amino Transferase 30 U/L (14-36); Bilirubin,Total 0.3 mg/dL (0.2-1.3); Blood Urea Nitrogen 12 mg/dL (7-17); Calcium 8.5 mg/dL (8.4-10.2); Carbon Dioxide 28 mmol/L (22-30); Chloride 106 mmol/L (98-107); Estimated CRCL calculation 106 ml/min; Estimated Glomerular Filt Rate > 60; Glucose 102 mg/dL (65-110); Lipase 69 U/L (23-300); Sodium 137 mmol/L (137-145)
[2023-07-24 17:10] LABS: Prothrombin Time 13.5 Seconds (11.1-14.7)
[2023-07-24 17:11] LABS: Partial Thromboplastin Time 30.7 SECONDS (22.3-36.8)
--- NOTE | 2023-07-24 18:55 | ADMGEN ---
This patient, Mariel Martines, was admitted to 2 Medical Room 259-. Patient/family oriented to hospital policies and general routines including ID bracelet, bed and alarms, visiting hours, pain management, procedures, bathroom and other care routines, personal items, smoking policy, room service/diet, and visiting hours. Information on how to activate the Rapid Response Team has been discussed. Patient/Family are encouraged to report perceived risks to care and to ask questions if they do not understand what they are told or what they should do.
[2023-07-24] MEDS: KETOROLAC 30 MG/ML VIAL (*BKC) IV PUSH (19:44)
[2023-07-24] MEDS: HYDROmorphone HCL INJ (*CRX) 1 MG/ML SYR IV PUSH (20:01)
[2023-07-24 21:15] VITALS: BP 93/54; PULSE 66; RESP 18; TEMP 36.3; O2SAT 99
[2023-07-25] VITALS (13 sets, daily range): BP systolic 90–118; BP diastolic 48–70; PULSE 58–81; RESP 12–19; TEMP 36.4–36.6; O2SAT 92–100
--- NOTE | 2023-07-25 00:24 | PC.NURSE ---
Bedside test reordered. Test was not completed in ED and order did not transfer in computer system to new inpatient V-number.
[2023-07-25] MEDS: DEXTROSE 5%/LACTATED RINGERS 1,000 ML 125 ML IV CONT (02:36)
--- NOTE | 2023-07-25 08:27 | PM.IMHP ---
H&P: HPI History of Present Illness Date/Time: 07/25/23 08:27 Chief Complaint: pelvic pain Narrative: 42-year-old female with severe pelvic pain and large ovarian cyst. Likely a torsion of the ovary and fallopian tube. In Profound pain by appearance, in the office, on the exam table crying. denies any vaginal bleeding. Denies any nausea, vomiting, fever, chills. She denies any chest pain shortness of breath Review of Systems Review of Systems: All systems reviewed & are unremarkable except as noted in HPI and below Constitutional: Constitutional: Denies chills, Denies fatigue, Denies fever(s) and Denies weakness Eyes: Eyes: Denies blurry vision, Denies change in vision, Denies loss of peripheral vision, Denies loss of vision, Denies other visual disturbances and Denies eye pain ENT: Denies vertigo, Denies dizziness, Denies hearing loss, Denies mouth pain, Denies nasal obstruction, Denies neck mass and Denies neck pain Cardiovascular: Cardiovascular: Denies chest pain, Denies diaphoresis, Denies syncope, Denies leg edema and Denies dyspnea Respiratory: Respiratory: Denies chest congestion, Denies cough, Denies hemoptysis, Denies dyspnea and Denies wheezing Gastrointestinal: Gastrointestinal: Denies abdominal pain, Denies constipation, Denies diarrhea, Denies nausea and Denies vomiting Genitourinary: Genitourinary: Denies hematuria, Denies change in libido, Denies nocturia, Denies genital lesions, Denies flank pain and Denies urinary urgency Musculoskeletal: Musculoskeletal: Denies abnormal gait, Denies back pain, Denies myalgias, Denies arthralgias, Denies joint swelling, Denies muscle weakness and Denies neck pain Integumentary/Breasts: Skin/Breast: Denies swelling, Denies breast pain, Denies breast mass, Denies dry skin, Denies nipple discharge, Denies unusual bruising and Denies jaundice Neurologic: Denies Neuro-related abnormal movements, Denies Abnormal speech present, Denies abnormal gait, Denies behavioral changes, Denies confusion, Denies vertigo, Denies dizziness, Denies syncope, Denies loss of vision, Denies memory loss, Denies convulsions and Denies weakness Psychiatric: Psychiatric: Denies abnormal sleep pattern, Denies behavioral changes, Denies change in libido, Denies confusion, Denies depression, Denies anhedonia and Denies memory loss Endocrine: Endocrine: Reports no additional endocrine complaints, Denies change in libido and Denies fatigue Hematologic/Lymphatic: Hematologic/Lymphatic: Reports no additional hematologic/lymphatic complaints Allergic/Immunologic: Allergic/Immunologic: Reports no additional allergic/immunologic complaints and Denies wheezing COUNTS INCLUDE 234 BEDS AT THE [facility] Past Medical History Medical History (Updated 07/25/23 @ 08:30 by Miladis Shin MD) Asthma Pre-diabetes Surgical History Surgical History (Updated 05/29/21 @ 09:10 by Tong Rodas DO) History of History of cholecystectomy Hx of tonsillectomy Family History Family History (Updated 07/24/23 @ 19:00 by Krystyna Franz RN) Mother Breast cancer Ovarian cancer Lupus Social History Social History (Updated 02/25/21 @ 17:13 by Reny Luz, [facility], ) Smoking packs per day: 0.25 Smoking cigarettes per day: 5.0 Years smoked: 26 Smoking pack-years: 6.50 Smoking status: Current every day smoker Tobacco type: cigarettes Alcohol intake: never Substance use: never Lack of Transportation: No Lack of Food: Never True Current Housing: I Have Housing Concerned About Future Housing: No Difficulty Paying Gas/Electric Bills: No Difficulty Paying for Meds: No Currently Unemployed: No Education: High School Diploma/GED Difficulty w/ Childcare or Family Care: No Gender identity (if verbalized by the patient): Female Spiritual care concerns: No Meds Home Medications and Allergies Home Medications Medication Instructions Recorded Confirmed Type bupropion HCl 150 mg tabl
--- NOTE | 2023-07-25 08:31 | WPDHPUPDATE1 ---
History and Physical Update Update Date/Time: 07/25/23 08:31 History and Physical has been reviewed, including an updated exam of the patient. There are NO changes in the patient's condition. Risks, benefits, and alternatives have been discussed and questions answered. Patient agrees to proceed with procedure.
[2023-07-25] MEDS: ONDANSETRON INJ 4 MG/2 ML VIAL IV PUSH ×2 (09:04→18:19)
[2023-07-25] MEDS: HYDROmorphone HCL INJ (*CRX) 1 MG/ML SYR IV PUSH ×2 (09:10→16:46)
--- NOTE | 2023-07-25 10:25 | PC.NURSE ---
To OR per bed, IV at left AC. Report given to Pascual NUNEZ.
--- NOTE | 2023-07-25 11:21 | WPDANESEPPF ---
Anes - Initial Pre Proc Eval Procedure: Operation Date: 07/25/23 12:00 Proposed Procedures p Laparoscopic Left Ovarian Cystectomy - Miladis Shin MD Date/Time: 07/25/23 11:21 Surgeon: Miladis Shin MD Pre Op Diagnosis: Ovarian cyst Patient Data Age: 42 Gender: F Height: 1.57 m Weight: 83.6 kg Last Vital Signs Temp 36.4 C 07/25/23 05:14 Pulse 58 L 07/25/23 05:14 Resp 18 07/25/23 05:14 BP 118/70 07/25/23 09:05 Pulse Ox 98 07/25/23 05:14 O2 Del Method Room Air 07/24/23 20:00 Allergies Allergy/AdvReac Type Severity Reaction Status Date / Time Penicillins Allergy Severe Hives Verified 07/25/23 10:49 codeine Allergy Intermediate Swelling Verified 07/25/23 10:49 hydrocodone AdvReac Mild Vomiting Verified 07/25/23 10:49 hydromorphone [From Dilaudid] AdvReac Mild Itching Verified 07/25/23 10:49 oxycodone [From Percocet] AdvReac Mild Vomiting Verified 07/25/23 10:49 Home Medications Medication Instructions Recorded Confirmed Type bupropion HCl 150 mg tablet,12 hr 150 mg PO BID 02/25/21 07/24/23 History sustained-release albuterol sulfate 90 mcg/actuation 2 inh inhalation TID PRN Dyspnea 05/28/21 07/24/23 History aerosol inhaler hydroxychloroquine 200 mg tablet 400 mg PO QAM 07/24/23 07/24/23 History Laboratory Tests 07/24/23 16:49 WBC 8.2 K/mm3 (4.5-10.0) RBC 4.61 M/mm3 (4.2-5.4) Hgb 14.6 g/dL (12.0-15.0) Hct 43.4 % (37.0-47.0) MCV 94.1 fl (80-100) MCH 31.7 pg (26-34) MCHC 33.6 g/dl (32-36) RDW 12.7 % (11.5-14.5) Plt Count 273 k/mm3 (150-375) MPV 10.9 H fl (7.4-10.4) Immature Gran % (Auto) 0.2 % (0-0.5) Neut % (Auto) 50.8 % (45.5-73.1) Lymph % (Auto) 36.1 % (18.3-44.2) Powell % (Auto) 7.5 % (2.6-8.5) Eos % (Auto) 4.7 H % (0-4.4) Baso % (Auto) 0.7 % (0.2-1.2) Lymph # (Auto) 2.97 K/mm3 (0.9-3.2) Powell # (Auto) 0.6 K/mm3 (0.1-0.6) Eos # (Auto) 0.4 H K/mm3 (0-0.3) Baso # (Auto) 0.1 K/mm3 (0.0-0.1) Abs Immat Gran (auto) 0.02 K/mm3 (0.00-0.031) Absolute Neuts (auto) 4.2 K/mm3 (1.3-6.7) Absolute Nucleated RBC 0.0 K/mm3 (0.0-0.012) Nucleated RBC % 0.0 % (0.0-0.2) PT 13.5 Seconds (11.1-14.7) INR 1.0 APTT 30.7 SECONDS (22.3-36.8) Sodium 137 mmol/L (137-145) Potassium 4.0 mmol/L (3.4-5.0) Chloride 106 mmol/L (98-107) Carbon Dioxide 28 mmol/L (22-30) Anion Gap 3 L mmol/L (8-16) BUN 12 mg/dL (7-17) Creatinine 0.60 L mg/dL (0.7-1.0) Estim Creat Clear Calc 106 ml/min Estimated GFR > 60 (59 - ) Glucose 102 mg/dL (65-110) Calcium 8.5 mg/dL (8.4-10.2) Total Bilirubin 0.3 mg/dL (0.2-1.3) AST 30 U/L (14-36) ALT 30 U/L (6-35) Alkaline Phosphatase 64 U/L (38-126) Total Protein 7.0 g/dL (6.3-8.2) Albumin 3.9 g/dL (3.5-5.1) Lipase 69 U/L (23-300) Patient hx anesthesia problems: post op nausea/vomiting Family hx anesthesia problems: none Results Review: All pre-operative results and documents have been reviewed as part of the pre-operative evaluation. [facility] Past Medical History Medical History (Updated 07/25/23 @ 11:21 by Tong Rodas DO) KIAH positive Asthma Endometriosis Pre-diabetes Surgical History Surgical History (Updated 05/29/21 @ 09:10 by Tong Rodas DO) History of History of cholecystectomy Hx of tonsillectomy Family History Family History (Updated 07/24/23 @ 19:00 by Krystyna Franz RN) Mother Breast cancer Ovarian cancer Lupus Social History Social History (Updated 02/25/21 @ 17:13 by Reny Luz, [facility], ) Smoking packs per day: 0.25 Smoking cigarettes per day: 5.0 Years smoked: 26 Smoking pack-years: 6.50 Smoking status: Current every day smoker Tobacco type: cigarettes Alcohol intake: never Substance use: never Lack of
[2023-07-25] MEDS: LACTATED RINGERS 1,000 ML 30 ML IV CONT ×2 (11:56→14:02)
[2023-07-25] MEDS: SCOPOLAMINE 1.5 MG PATCH TRANSDERM (11:56)
--- NOTE | 2023-07-25 13:55 | W.PM.PROC2 ---
Procedure Note - Detailed Date of Procedure 07/25/23 Pre-op Diagnosis Left ovarian cyst, pelvic pain Post-op Diagnosis Same ( Frozen pelvis.) Procedure Performed Laparoscopic adhesiolysis and left salpingo-oophorectomy. The 45 minutes of adhesiolysis was performed. Surgeon Miladis Shin MD Anesthesia General Indications Pelvic pain Findings Dense scarring throughout the left and right adnexa. On the left side the ovarian cyst and adnexal structures were firmly adherent with dense scar tissue. The right adnexa had the right ovary firmly adherent to the pelvic sidewall. The colon was also adherent to the bilateral adnexa and posterior uterus. Left adnexa required resection due to the Chronically inflamed nature. It was done for relief of the pain. Description of Procedure The patient was taken to the operating room. She was prepped and draped in the dorsal lithotomy position after induction general anesthesia. A 5 mm incision was made with a scalpel on the abdominal skin in the left upper quadrant of the abdomen. A 5 mm trocar was inserted into the intra-abdominal cavity under direct visualization the scope. In the same fashion a 11 mm left lower quadrant trocar was inserted and a 5 mm infraumbilical trocar was inserted. 45 minutes of adhesiolysis was performed in the left and right adnexa. this was done using sharp and blunt dissection along with cautery. Ureterolysis was performed on the left from the pelvic brim down to the uterine artery. It was fully intact. The colon was dissected off the bilateral adnexa and posterior uterus. The left salpingo-oophorectomy was performed. The infundibulopelvic ligament was cauterized and transected. The para ovarian tissue around the mesosalpinx was cauterized and transected as well. This was all scarred and inflamed. the suspensory ligament the ovary and fallopian tube were cauterized and transected as well with LigaSure cautery. The left adnexa was taken out the left lower quadrant trocar through an endobag. Hematoma was placed on the left adnexa heavily dissected area. The pelvis was irrigated. The pneumoperitoneum was reduced. The trocars were removed. Skin was closed with subcuticular 4 micro. The patient's incisions were covered with Dermabond. She was taken recovery room in stable condition. Sponge lap and needle counts were correct x2. Complications No immediate complications Condition Stable Disposition Same day
[2023-07-25] MEDS: fentaNYL CITRATE INJ (*CRX) 100 MCG/2 ML VIAL 25 MCG IV PUSH ×4 (14:33→14:45)
--- NOTE | 2023-07-25 15:15 | PC.NURSE ---
Addendum entered by Ginger Christy RN 07/25/23 18:43: Returned from OR per bed at 1515. Report received from Myra NUNEZ. Original Note: Returned from OR per [ ]. Report received from [ ].
[2023-07-25] MEDS: buPROPion HCL SR (12 HR) 150 MG TAB PO (18:19)
[2023-07-26 00:36] VITALS: BP 100/55; PULSE 67; RESP 20; TEMP 36.6; O2SAT 97
--- NOTE | 2023-07-26 00:48 | PC.NURSE ---
PT STATES SHE IS NOT ALLERGIC TO OXYCODONE IT JUST makes her nauseated
[2023-07-26] MEDS: ONDANSETRON INJ 4 MG/2 ML VIAL IV PUSH (01:20)
[2023-07-26] MEDS: oxyCODONE/ACETAMINOPHEN (*CRX) 5-325 MG TABLET 1 TABLET PO (01:20)
[2023-07-26 04:48] VITALS: BP 100/58; PULSE 67; RESP 18; TEMP 36.9; O2SAT 98
--- NOTE | 2023-07-26 08:13 | PM.GYNPNOP ---
TEACHING ARTIST - A/P Postoperative Procedures: Procedures Operation Date: 07/25/23 12:00 Actual Procedure Side Surgeon p Laparoscopic Adhesolysis with Left Salpingo-Ophorectomy Left Miladis Shin MD Postoperative day: 1 Postoperative status: doing well Postoperative plan: see orders Time Spent With Patient Time: Total time spent is greater than 50% in coordination of care (as documented) at patient's floor/unit and/or counseling patient: Time with patient: less than 15 minutes TEACHING ARTIST- PN:Subj Post-Op Subjective Date/time seen: 07/26/23 08:13 Subjective: patient reports feeling better, patient has no complaints and pain is well controlled Exam Const: General: healthy appearing, comfortable and no acute distress Resp: Auscultation: clear to auscultation bilaterally, no rales, no rhonchi and no wheezes Cardio: Rate: regular rate Heart sounds: no click, no murmurs and no rubs GI: Inspection: non-distended Auscultation: normal bowel sounds Extrem: General: normal to inspection, no pedal edema and no calf tenderness TEACHING ARTIST - PN: Obj Data Vital Signs Vital Signs: Vital Signs - 24 hr 07/25/23 09:05 07/25/23 14:02 07/25/23 14:15 Temperature 97.8 F Pulse Rate 67 80 Respiratory Rate 19 12 Blood Pressure 118/70 90/52 L 98/58 L Pulse Oximetry 97 100 Oxygen Delivery Simple Face Mask Simple Face Mask Oxygen Flow Rate 8 8 07/25/23 14:30 07/25/23 14:45 07/25/23 15:00 Temperature Pulse Rate 69 81 78 Respiratory Rate 12 16 12 Blood Pressure 93/50 L 97/60 L 97/55 L Pulse Oximetry 97 100 100 Oxygen Delivery Room Air Room Air Room Air Oxygen Flow Rate 07/25/23 15:16 07/25/23 15:31 07/25/23 16:01 Temperature 97.5 F L 97.7 F 97.7 F Pulse Rate 69 69 80 Respiratory Rate 16 16 18 Blood Pressure 109/64 107/67 108/48 L Pulse Oximetry 100 100 92 Oxygen Delivery Oxygen Flow Rate 07/25/23 17:01 07/25/23 21:07 07/26/23 00:36 Temperature 97.8 F 97.6 F 97.8 F Pulse Rate 74 68 67 Respiratory Rate 18 16 20 Blood Pressure 102/58 L 104/51 L 100/55 L Pulse Oximetry 99 96 97 Oxygen Delivery Oxygen Flow Rate 07/26/23 04:48 Temperature 98.5 F Pulse Rate 67 Respiratory Rate 18 Blood Pressure 100/58 L Pulse Oximetry 98 Oxygen Delivery Oxygen Flow Rate Intake/Output Intake/Output: Intake & Output 07/23/23 07/24/23 07/25/23 07/26/23 23:59 23:59 23:59 23:59 Intake Total 1220 2372 340 Output Total 650 Balance 1220 1722 340 Meds/Results Medications: Active Medications Generic Name Dose Route Start Last Admin Trade Name Freq PRN Reason Stop Dose Admin Albuterol 2 puff 07/25/23 15:02 Albuterol Sulfate (*Sp) Aerosol 1 Puff INHALATION TID PRN Dyspnea Bupropion HCl 150 mg 07/25/23 17:00 07/25/23 18:19 Bupropion Hcl Sr (12 Hr) 150 Mg Tab PO 150 mg BID PRASANNA Administration Fentanyl Citrate 25 mcg 07/25/23 11:22 07/25/23 14:45 Fentanyl Citrate Inj (*Crx) 100 Mcg/2 Ml Vial IV PUSH 25 mcg Q2M PRN Administration Pain Hydromorphone HCl 1 mg 07/24/23 19:32 07/25/23 16:46 Hydromorphone Hcl Inj (*Crx) 1 Mg/Ml Syr IV PUSH 1 mg Q3H PRN Administration Pain Rated 7-10 Hydroxychloroquine Sulfate 400 mg 07/26/23 09:00 Hydroxychloroquine Sulfate 200 Mg Tablet PO QAM PRASANNA Dextrose/Lactated Ringer's 1,000 mls @ 125 mls/hr 07/25/23 00:00 07/25/23 10:25 Dextrose 5%/Lactated Ringers IV CONT Infused .Q8H PRASANNA Infusion Lactated Ringer's 1,000 mls @ 30 mls/hr 07/25/23 11:25 07/25/23 14:02 Lr - Lactated Ringers Iv IV CONT Infused .Q24H PRASANNA Infusion Lactated Ringer's 1,000 mls @ 30 mls/hr 07/25/23 11:25 07/25/23 15:00 Lr - Lactated Ringers Iv IV CONT Infused .Q24H PRASANNA Infusion Ondansetron HCl 4 mg 07/24/23 17:10 07/26/23 01:20 Ondansetron Inj 4 Mg/2 Ml Vial IV PUSH 4 mg Q4H PRN Administration Nausea Ondansetron HCl 4 mg 07/25/23 11:22 Ondansetron Inj 4 Mg/2 Ml Vial IV PUSH
[2023-07-26] MEDS: buPROPion HCL SR (12 HR) 150 MG TAB PO (08:54)
[2023-07-26] MEDS: HYDROXYCHLOROQUINE SULFATE 200 MG TABLET 400 MG PO (08:54)
[2023-07-26 09:37] VITALS: BP 103/64; PULSE 75; RESP 16; TEMP 36.6; O2SAT 100
--- NOTE | 2023-08-17 21:37 | PM.DS ---
DS: Admitting Diagnosis Discharge Date 07/26/23 Admitting Diagnosis pelvic pain DS: Discharge Diagnosis Discharge Diagnosis (1) Cyst of ovary, left: Code(s): N83.202 - Unspecified ovarian cyst, left side Status: Acute DS: Summary Hospital Course Hospital Course: 42-year-old female who was admitted for pain management to the hospital. She would an ovarian cyst. She is taken the operating room. A ovarian torsion was treated with left salpingo-oophorectomy. She began to recover normally. She is sent to the floor and later discharged home. Time Spent with Patient Time attestation: Total time spent providing and/or coordinating discharge services: DS: Data Data Completed and Pending Completed studies during hospitalization: Pending at discharge 07/25/23 13:43 Surgical [PTH] Routine Pending studies at discharge: Pending at discharge 07/25/23 13:29 Surgical [PTH] Routine Discharge Plan Discharge Consulting providers: Tong Rodas Discharging Clinician: Miladis Shin Patient Disposition: Home, Self-Care Activity: pelvic rest Diet: regular Discharge Instructions: Remove the Scopolamine patch that was placed behind your ear in 72 hours or less. Wash your hands after touching. Patient Instructions: Antibiotic Form, How to Stop Smoking (DC) Stand Alone Forms: General Discharge Information Follow-up/Referrals: Miladis Shin MD [Physician] - Discharge Medications: New oxycodone-acetaminophen 5-325 mg tablet 1 tablet PO Q4H PRN (Reason: pain) Qty: 14 0RF Continued bupropion HCl 150 mg tablet sustained-release 12 hr 150 mg PO BID albuterol sulfate 90 mcg/actuation HFA aerosol inhaler 2 inh INHALATION TID PRN (Reason: Dyspnea) hydroxychloroquine 200 mg tablet 400 mg PO QAM Date of admission: 07/24/23 17:10 Primary Care Provider: Rex,[facility] Admitting Provider: Miladis Shin Attending physician on admission: Miladis Shin Condition: Stable
== END 2023-07-26 11:10 | disposition home or self-care (01) ==
LOC: ANHED 17:32 → ANH2MED 17:53
PROVIDERS: Physician Assistant; Admitting Provider Obstetrics & Gynecology; Emergency Provider Emergency Medicine; PCP Family Medicine; Visit Provider Obstetrics & Gynecology
PROC: (CPT 49320; principal; 2023-07-25 12:00)
DX: N83.202 Unspecified ovarian cyst, left side (principal); K66.0 Peritoneal adhesions (postprocedural) (postinfection); J45.909 Unspecified asthma, uncomplicated; R73.03 Prediabetes; Z79.51 Long term (current) use of inhaled steroids; Z79.899 Other long term (current) drug therapy; Z80.41 Family history of malignant neoplasm of ovary; F17.210 Nicotine dependence, cigarettes, uncomplicated
CPT/HCPCS: 58661; 36415; 74177; 80053; 81003; 81025; 83690; 85025; 85610; 85730; 88305; 96361; 96374; 96375; 96376; 99284; 99285; A9270; G0378; G0379; J0330; J1100; J1170; J1885; J2250; J2405; J2704; J3010; J7030; J7120; J7121; Q9967